=== PATIENT | female | born 1990 | race Caucasian/White ===

== ENCOUNTER 2016-02-06 04:11 | Outpatient (CLI) | payer BC, OTHER | END 2016-02-06 05:32 | disposition home or self-care (01) | LOC: FBPOP 04:11 | PROVIDERS: ATTEND Obstetrics & Gynecology | DX: O62.2 Other uterine inertia (principal); Z3A.38 38 weeks gestation of pregnancy | CPT/HCPCS: 59025; 99213 ==

== ENCOUNTER 2016-02-08 06:22 | Inpatient (IN) | payer BC, OTHER ==
[2016-02-08] MEDS ORDERED: LACTATED RINGERS 1,000 ML IV ONE (06:34)
[2016-02-08] MEDS ORDERED: CITRIC ACID-SODIUM CITRATE 15 ML CUP PO ONE (06:34)
[2016-02-08 06:43] VITALS: BMI 34.7
[2016-02-08] MEDS ORDERED: LACTATED RINGERS 1,000 ML IV SCH (06:45)
[2016-02-08 06:57] LABS: Basophils % (A) 0 %; CH 31.1; CHCM 34.7; Eosinophils # (A) 0.4 k/uL (0-0.7); Eosinophils % (A) 4 %; HCT 32.6 % (34.0-46.0); HDW 3.14; HGB 11.4 gm/dL (11.4-16.0); Luc # (Auto) 0.17; Luc % (Auto) 2; Lymphocytes # (A) 2.1 k/uL (1.0-4.8); Lymphocytes % (A) 19 %; MCH 31.5 pg (25.0-35.0); MCHC 34.9 g/dL (31.0-37.0); MCV 90.3 fL (80.0-100.0); Mean Platelet Volume 7.4; Monocytes # (A) 0.5 k/uL (0-1.0); Monocytes % (A) 5 %; Neutrophils # (A) 7.7 k/uL (1.3-7.7); Neutrophils % (A) 70 %; RBC 3.62 m/uL (3.80-5.40); RDW 13.6 % (11.5-15.5); WBC 10.9 k/uL (3.8-10.6); WBC (Perox) 11.29
[2016-02-08] MEDS ORDERED: ceFAZolin 2 GM in SODIUM CHLORIDE 0.9% 100 ML IVPB STA (07:39)
[2016-02-08] MEDS ORDERED: NALBUPHINE 10 MG/ML AMPUL ONE (07:54)
[2016-02-08] MEDS ORDERED: ONDANSETRON 4 MG/2 ML VIAL ONE (07:54)
[2016-02-08] MEDS ORDERED: OXYTOCIN 10 UNIT/ML 1 ML VIAL IM ONE (07:54)
[2016-02-08] MEDS ORDERED: MORPHINE SULFATE (PF) 0.3 MG/0.3 ML SYR ONE (07:54)
[2016-02-08] MEDS ORDERED: KETOROLAC 30 MG/ML 1 ML VIAL ONE (07:54)
[2016-02-08] MEDS ORDERED: diphenhydrAMINE 50 MG/ML 1 ML VIAL IVP PRN ×3 (08:19→08:36)
[2016-02-08] MEDS ORDERED: MORPHINE SULFATE 4 MG/ML SYRINGE IVP PRN (08:19)
[2016-02-08] MEDS ORDERED: ONDANSETRON 4 MG/2 ML VIAL IVP PRN (08:19)
[2016-02-08] MEDS ORDERED: NALOXONE 0.4 MG/ML 1 ML VIAL IV PRN (08:19)
[2016-02-08] MEDS ORDERED: ZOLPIDEM 5 MG TAB PO PRN (08:36)
[2016-02-08] MEDS ORDERED: diphenhydrAMINE 25 MG CAP PO PRN (08:36)
[2016-02-08] MEDS ORDERED: LANOLIN CREAM 5 GM TUBE TOPICAL PRN (08:36)
[2016-02-08] MEDS ORDERED: ACETAMINOPHEN TAB 325 MG TAB PO PRN (08:36)
[2016-02-08] MEDS ORDERED: Acetaminophen-Codeine 300-30mg TAB PO PRN (08:36)
[2016-02-08] MEDS ORDERED: diphenhydrAMINE 50 MG CAP PO PRN (08:36)
[2016-02-08] MEDS ORDERED: METOCLOPRAMIDE 5 MG/ML 2 ML VIAL IVP PRN (08:36)
[2016-02-08] MEDS ORDERED: SIMETHICONE 80 MG CHEWABLE PO PRN (08:36)
--- NOTE | 2016-02-08 08:40 | P.HPOB ---
History of Present Illness H&P Date: 02/08/16 Chief Complaint: repeat with TL 25 year old presents at 39 weeks for repeat low transverse with tubal ligation. Review of Systems All systems: negative Constitutional: Denies chills, Denies fever Eyes: denies blurred vision, denies pain Ears, nose, mouth and throat: Denies headache, Denies sore throat Cardiovascular: Denies chest pain, Denies shortness of breath Respiratory: Denies cough Gastrointestinal: Denies abdominal pain, Denies diarrhea, Denies nausea, Denies vomiting Genitourinary: Denies dysuria, Denies hematuria Musculoskeletal: Denies myalgias Integumentary: Denies pruritus, Denies rash Neurological: Denies numbness, Denies weakness Psychiatric: Denies anxiety, Denies depression Endocrine: Denies fatigue, Denies weight change Past Medical History Past Medical History: No Reported History Additional Past Medical History / Comment(s): OB history: she has had 2 previous c-sections. Her care was with me since her second trimester. History of Any Multi-Drug Resistant Organisms: MRSA Date of last positivie culture/infection: 2014 MDRO Source:: groin, section incision Past Surgical History: Section, Orthopedic Surgery Additional Past Surgical History / Comment(s): bilateral legs Past Anesthesia/Blood Transfusion Reactions: No Reported Reaction Past Psychological History: No Psychological Hx Reported Smoking Status: Current every day smoker Past Alcohol Use History: None Reported Past Drug Use History: None Reported - Past Family History Mother Family Medical History: No Reported History Medications and Allergies Allergies Allergy/AdvReac Type Severity Reaction Status Date / Time Penicillins Allergy Vomiting Verified 02/08/16 06:32 Exam Osteopathic Statement: *. No significant issues noted on an osteopathic structural exam other than those noted in the History and Physical/Consult. - Vital Signs Vital signs: Vital Signs Temp Pulse Resp BP 02/08/16 06:31 97.2 F L 85 16 136/65 Intake and Output 02/07/16 02/08/16 02/08/16 22:59 06:59 14:59 Other: Weight 78.018 kg Heart: RRR Lungs: CTAB Abdomen: soft, nontender Extremeties: neg mary's Results Result Diagrams: 02/08/16 06:30 Abnormal Lab Results - Last 24 Hours (Table) 02/08/16 Range/Units 06:30 WBC 10.9 H (3.8-10.6) k/uL RBC 3.62 L (3.80-5.40) m/uL Hct 32.6 L (34.0-46.0) % Assessment and Plan (1) Previous section Status: Acute (2) Family planning Status: Acute Plan: 1. repeat low transverse with tubal ligation
--- NOTE | 2016-02-08 08:43 | P.OP ---
Date of Procedure: 02/08/16 Preoperative Diagnosis: 1. at 39 weeks 2. previous 3. family planning Postoperative Diagnosis: 1. at 39 weeks 2. previous 3. family planning Procedure(s) Performed: Repeat low transverse with tubal ligation Implants: Anesthesia: spinal Surgeon: Amalia Cao Physics Department Chair #1: Andres Duron Estimated Blood Loss (ml): 500 IV fluids (ml): 800 Urine output (ml): 200 Pathology: other (Placenta, bilateral fallopian tube segment) Condition: stable Disposition: floor Indications for Procedure: Operative Findings: Viable female, Apgars 8, 9, weight 6 lbs. 7 oz. Description of Procedure: Patient was taken to the operating room where spinal anesthesia was found be adequate. She was prepped and draped in normal sterile fashion in dorsal supine position with a leftward tilt. Pfannenstiel skin incision was made the scalpel and carried through to the underlying layer of fascia with the scalpel. Fascia was incised in midline and carried bilaterally with the Francis scissors. The superior aspect of the fascial incision was grasped with Kiel clamps elevated and the underlying rectus muscles dissected off with the Francis's. Attention was then turned to inferior aspect of same incision which in a similar fashion was grasped tented up and the underlying rectus muscles dissected off with the Francis's. The rectus muscles were the midline and the peritoneum was identified tented up and entered sharply with the scalpel. The incision was extended superiorly and inferiorly with good visualization of the bladder. The bladder blade was inserted and the vesicouterine peritoneum was incised the Metzenbaums then carried bilaterally and bladder flap created digitally. A low transverse incision was then made on the uterus with the scalpel. This was carried bilaterally and digital manner. 's head delivered atraumatically, nose and mouth bulb suctioned, cord clamped and cut, infant handed off to waiting nurses. Apgars 8,9, weight 6 lbs. 7 oz. Placenta delivered manually, intact with three-vessel cord. The uterus is exteriorized and cleared of all clots and debris. The uterine incision was closed with 0 Vicryl in a running locked fashion. Both ovaries and tubes appeared normal. The right fallopian tube was grasped with a hemostat and a window was made in the mesosalpinx with the Bovie. The fallopian tube was doubly ligated and a segment was removed. The pedicles were cauterized with the Bovie. The left fallopian tube was grasped with a hemostat and a window was made in the mesosalpinx with the Bovie. The fallopian tube was doubly ligated and a segment was removed. The pedicles were cauterized with the Bovie. The uterus was placed back into the abdomen. The peritoneum was reapproximated using 2-0 Vicryl in a running fashion. The muscles were reapproximated using 2-0 Vicryl in interrupted fashion. The fascia was reapproximated using 0 Vicryl in a running fashion. The subcutaneous tissues closed with 3-0 Vicryl running fashion. The skin was closed luan. Patient tolerated the procedure well, sponge and instrument counts were correct times 2 and she was taken to the recovery room in stable condition.
[2016-02-08] MEDS ORDERED: OXYTOCIN 30 UNITS/500 ML NS 30 UNIT in SALINE 1 500ML.BAG IV SCH (08:45)
[2016-02-08] MEDS: NICOTINE 21MG/24HR PATCH TRANSDERM SCH (09:30)
[2016-02-08] MEDS: KETOROLAC 30 MG/ML 1 ML VIAL IVP PRN ×2 (16:33→22:27)
[2016-02-08] MEDS: LACTATED RINGERS 1,000 ML IV SCH (17:05)
[2016-02-08] MEDS: SENNOSIDES-DOCUSATE SODIUM 1 EACH TAB PO SCH (20:40)
[2016-02-09] MEDS: LACTATED RINGERS 1,000 ML IV SCH (02:23)
[2016-02-09] MEDS: KETOROLAC 30 MG/ML 1 ML VIAL IVP PRN (04:20)
--- NOTE | 2016-02-09 08:33 | P.PNOBGPC ---
Subjective - Subjective Principal diagnosis: S/P RLTCS with TL POD #1 Interval history: Patient seen and examined. no flatus yet. Denies N/V, F/C, CP, SOB, calf pain. Patient reports: Reports appetite normal, Reports voiding normally, Reports pain well controlled, Reports ambulating normally : doing well Objective - Vital Signs Latest vital signs: Vital Signs Temp Pulse Resp BP Pulse Ox 02/09/16 04:00 98.0 F 71 16 105/68 98 02/09/16 03:00 98 02/09/16 01:00 98 02/09/16 00:00 97.0 F L 61 16 126/87 99 02/08/16 23:00 97 02/08/16 21:00 99 02/08/16 20:00 97.7 F 65 16 113/59 98 02/08/16 19:00 98 02/08/16 17:00 96 02/08/16 16:00 97.7 F 65 16 125/60 98 02/08/16 15:00 98 02/08/16 13:00 98 F 62 16 128/62 99 02/08/16 12:00 97.8 F 69 16 132/72 02/08/16 11:19 62 16 136/70 99 02/08/16 10:34 98.1 F 63 16 123/73 98 02/08/16 10:04 62 16 117/67 97 02/08/16 09:34 64 16 123/79 99 02/08/16 09:19 80 16 114/70 99 02/08/16 09:04 70 16 127/79 98 02/08/16 08:49 95.7 F L 64 16 121/63 98 02/08/16 08:34 96.9 F L 86 16 118/59 99 Intake and Output 02/08/16 02/09/16 02/09/16 22:59 06:59 14:59 Intake Total 600 1100 Output Total 1600 Balance -1000 1100 Intake: Intake, IV Titration 500 Amount Lactated Ringers 1,000 ml 500 @ 125 mls/hr IV .Q8H [facility] Rx#:[id number] Oral 600 600 Output: Urine 1600 Other: # Voids 1 1 - Exam Lungs: bilateral: normal Chest: Normal S1, Normal S2 Extremities: Present: normal Abdomen: Present: normal appearance, soft. Absent: distention, tenderness Incision: Present: normal, dry, intact Uterus: Present: normal, firm Assessment and Plan (1) Previous section Current Visit: Yes Status: Resolved Code(s): Z98.891 - HISTORY OF UTERINE SCAR FROM PREVIOUS SURGERY SNOMED Code(s): 774234414 (2) Family planning Current Visit: Yes Status: Resolved Code(s): Z30.09 - ENCOUNTER FOR OTH GENERAL CNSL AND ADVICE ON CONTRACEPTION SNOMED Code(s): 39183212 (3) Status post repeat low transverse section Narrative/Plan: 1. po care 2. reg diet with flatus Current Visit: No Status: Acute Code(s): Z98.89 - OTHER SPECIFIED POSTPROCEDURAL STATES * DO NOT USE * SNOMED Code(s): 849032399
[2016-02-09 08:40] LABS: Basophils % (A) 0 %; CH 31.3; CHCM 34.5; Eosinophils # (A) 0.4 k/uL (0-0.7); Eosinophils % (A) 3 %; HDW 3.12; HGB 10.4 gm/dL (11.4-16.0); Luc # (Auto) 0.22; Luc % (Auto) 2; Lymphocytes # (A) 2.5 k/uL (1.0-4.8); Lymphocytes % (A) 23 %; MCH 30.8 pg (25.0-35.0); MCHC 33.6 g/dL (31.0-37.0); MCV 91.5 fL (80.0-100.0); Mean Platelet Volume 7.1; Monocytes # (A) 0.4 k/uL (0-1.0); Monocytes % (A) 4 %; Neutrophils # (A) 7.4 k/uL (1.3-7.7); Neutrophils % (A) 68 %; RBC 3.39 m/uL (3.80-5.40); RDW 13.9 % (11.5-15.5); WBC 10.9 k/uL (3.8-10.6); WBC (Perox) 11.52
[2016-02-09] MEDS: NICOTINE 21MG/24HR PATCH TRANSDERM SCH (09:33)
--- NOTE | 2016-02-09 10:17 | P.PN ---
Progress Note - Text Postoperative day 1 status post section under spinal anesthesia, and intrathecal morphine given for postoperative analgesia, patient doing ok. Pain score 5-6/10. There is no anesthesia related complications, further management as per her primary team
[2016-02-09] MEDS: SENNOSIDES-DOCUSATE SODIUM 1 EACH TAB PO SCH ×2 (13:06→22:35)
[2016-02-09] MEDS: Acetaminophen-Codeine 300-30mg TAB PO PRN ×3 (13:07→22:35)
[2016-02-09] MEDS: IBUPROFEN 600 MG TAB PO PRN (15:50)
[2016-02-10] MEDS: IBUPROFEN 600 MG TAB PO PRN ×2 (00:20→06:30)
[2016-02-10 01:00] VITALS: RESP 18
[2016-02-10] MEDS: Acetaminophen-Codeine 300-30mg TAB PO PRN ×2 (03:11→12:29)
[2016-02-10 08:32] VITALS: BP 138/94; PULSE 63; TEMP 97.7
--- NOTE | 2016-02-10 08:36 | P.DS ---
Providers Date of admission: 02/08/16 06:22 Expected date of discharge: 02/10/16 Attending physician: Amalia Cao - Discharge Diagnosis(es) (1) Previous section Current Visit: Yes Status: Resolved (2) Family planning Current Visit: Yes Status: Resolved (3) Status post repeat low transverse section Current Visit: No Status: Acute Hospital Course: Pt presented for RLTCS with TL. She underwent this procedure without complication. HEr post course was uneventful. She is ambulating and voiding without difficulty. Passing flatus and tolerating a regular diet. Pain is controlled with po meds. Denies N/V, F/C, CP, SOB, calf pain. Plan - Discharge Summary New Discharge Prescriptions: Acetaminophen-Codeine 300-30mg [Tylenol #3] 2 tab PO Q6H PRN #30 tablet PRN Reason: Pain Ibuprofen [Motrin] 600 mg PO Q6HR PRN #30 tab PRN Reason: Mild Pain Or Fever >= 100.5 Discharge Medication List Acetaminophen-Codeine 300-30mg [Tylenol #3] 2 tab PO Q6H PRN #30 tablet [Rx] Ibuprofen [Motrin] 600 mg PO Q6HR PRN #30 tab 02/10/16 [Rx] Follow up Appointment(s)/Referral(s): Amalia Cao DO [Doctor of Osteopathic Medicine] - 1 Week Discharge Disposition: HOME SELF-CARE
[2016-02-10] MEDS: SENNOSIDES-DOCUSATE SODIUM 1 EACH TAB PO SCH (12:29)
[2016-02-10] MEDS: NICOTINE 21MG/24HR PATCH TRANSDERM SCH (12:29)
== END 2016-02-10 15:39 | disposition home or self-care (01) | DRG 766 ==
LOC: 4FBP 06:22
PROVIDERS: ADMIT Obstetrics & Gynecology; ATTEND Obstetrics & Gynecology
PROC: 0UB70ZZ Excision of Bilateral Fallopian Tubes, Open Approach (ICD-10-PCS; principal; 2016-02-08 08:05)
PROC: 10D00Z1 Extraction of Products of Conception, Low, Open Approach (ICD-10-PCS; principal; 2016-02-08 08:05)
DX: O34.211 Maternal care for low transverse scar from previous cesarean delivery (principal); F17.200 Nicotine dependence, unspecified, uncomplicated; Z37.0 Single live birth; O99.334 Smoking (tobacco) complicating childbirth; Z3A.39 39 weeks gestation of pregnancy; Z88.0 Allergy status to penicillin
CPT/HCPCS: 85025; 86850; 86900; 86901; 88302; 88307

== ENCOUNTER 2016-02-13 00:38 | Emergency (ER) | payer BC, OTHER ==
[2016-02-13 00:45] VITALS: RESP 20
[2016-02-13] MEDS ORDERED: CEPHALEXIN 500MG STARTER PACK 4 CAP BTL PO STA (01:08)
--- NOTE | 2016-02-13 01:09 | ED ---
Recheck HPI - General Chief Complaint: Recheck/Abnormal Lab/Rx Stated Complaint: Post C Section Complication Time Seen by Provider: 02/13/16 00:54 Source: patient, family Mode of arrival: ambulatory Limitations: no limitations - History of Present Illness Initial Comments: Patient is a 25-year-old female presenting to the with chief complaint of some bleeding and taking that her scar is somewhat open. Patient reports she had a on February 07. Patient reports that she was sent home and was even Steri-Strips. She denies any redness or drainage around the incision site. She states that the incision is slightly opened when she lifted up her child earlier in the week. She denies any worsening opening. She states it is healed nicely despite the widening in the middle of the laceration and denies any drainage. She denies any fevers.Patient denies any recent fever , chills, shortness of breath, chest pain, back pain, abdominal pain, nausea vomiting, numbness or tingling, dysuria or hematuria, constipation or diarrhea, headaches or visual changes, or any other current symptoms - Related Data Previous Rx's Medication Instructions Recorded Acetaminophen-Codeine 300-30mg 2 tab PO Q6H PRN #30 tablet 02/10/16 [Tylenol #3] Ibuprofen [Motrin] 600 mg PO Q6HR PRN #30 tab 02/10/16 Cephalexin [Keflex] 500 mg PO Q8HR #21 cap 02/13/16 Allergies Allergy/AdvReac Type Severity Reaction Status Date / Time Penicillins Allergy Vomiting Verified 02/13/16 00:45 Review of Systems ROS Statement: Those systems with pertinent positive or pertinent negative responses have been documented in the HPI. ROS Other: All systems not noted in ROS Statement are negative. Past Medical History Past Medical History: No Reported History Additional Past Medical History / Comment(s): OB history: she has had 2 previous c-sections. Her care was with me since her second trimester. History of Any Multi-Drug Resistant Organisms: MRSA Date of last positivie culture/infection: 2014 MDRO Source:: groin, section incision Past Surgical History: Section, Orthopedic Surgery Additional Past Surgical History / Comment(s): bilateral legs Past Anesthesia/Blood Transfusion Reactions: No Reported Reaction Past Psychological History: No Psychological Hx Reported Smoking Status: Current every day smoker Past Alcohol Use History: None Reported Past Drug Use History: None Reported - Past Family History Mother Family Medical History: No Reported History General Exam - General Exam Comments Initial Comments: Patient is a well-appearing 25-year-old female. She does not appear to be in any acute distress. Limitations: no limitations General appearance: alert, in no apparent distress Head exam: Present: atraumatic, normocephalic, normal inspection Eye exam: Present: normal appearance, PERRL, EOMI. Absent: scleral icterus, conjunctival injection, periorbital swelling ENT exam: Present: normal exam, mucous membranes moist Neck exam: Present: normal inspection. Absent: tenderness, meningismus, lymphadenopathy Respiratory exam: Present: normal lung sounds bilaterally. Absent: respiratory distress, wheezes, rales, rhonchi, stridor Cardiovascular Exam: Present: regular rate, normal rhythm, normal heart sounds. Absent: systolic murmur, diastolic murmur, rubs, gallop, clicks GI/Abdominal exam: Present: soft, normal bowel sounds, other (Evidence of C- section scar. There are Steri-Strips around the incision. There is mild dehiscence of the middle of the wound approximately 0.5 cm apart. The wound is healing well and has no drainage or erythema around the incision site.). Absent : distended, tenderness, guarding, rebound, rigid Extremities exam: Present: normal inspection, full ROM, normal capillary refill. Absent: tenderness, pedal edema, joint swelling, calf tenderness Back exam: Present: normal inspection Neurological exam: Present: alert, oriented X3, CN II-XII intact Psychiatric exam: Present: normal affect, normal mood Skin exam: Present: warm, dry, intact, normal color. Absent: rash Course Vital Signs 02/13/16 02/13/16 00:41 01:28 Temperature 97.7 F 98.6 F Pulse Rate 66 78 Respiratory 20 20 Rate Blood Pressure 143/70 122/78 O2 Sat by Pulse 97 98 Oximetry Medical Decision Making - Medical Decision Making Asians 25-year-old female with chief complaint of thinking that her incision site opened. She denies any drainage, redness or erythema over the incision site. There is a mild area that dehisced approximately 0.5 cm wide. The wound is healing nicely and is healing from the inside out. No indication for closure at this time. We did do a wound culture however there is not much fluid or anything to be culture this time. Patient will be started on Keflex as a prophylactic antibiotic for this surgical site infection. Patient understands that she needs a follow-up with her surgeon in approximately 2-3 days as previously planned. Patient shouldn't chew plan will comply. Return parameters were discussed. I advised patient to not lift or do any specific movements which could cause more disruption of the incision site Disposition Clinical Impression: Dehiscence of internal surgical incision Disposition: HOME SELF-CARE Condition: Good Instructions: Surgical Site Infections (ED) Additional Instructions: Patient instructed to completely anabiotic prescription. Follow-up with OB/ ENVIRONMENTAL COMPLIANCE ENGINEER. Return to the EC if any alarming signs or symptoms occur. Prescriptions: Cephalexin [Keflex] 500 mg PO Q8HR #21 cap Referrals: None,Stated [Primary Care Provider] - 1-2 days Time of Disposition: 01:08
[2016-02-13 01:29] VITALS: BP 122/78; PULSE 78; TEMP 98.6
== END 2016-02-13 01:34 | disposition home or self-care (01) ==
LOC: EC 00:38
DX: T81.32XA Disruption of internal operation (surgical) wound, not elsewhere classified, initial encounter (principal); F17.200 Nicotine dependence, unspecified, uncomplicated; Z88.0 Allergy status to penicillin
CPT/HCPCS: 87070; 87205; 99283

== ENCOUNTER 2016-06-14 23:11 | Emergency (ER) | payer BC, OTHER ==
[2016-06-14 23:24] VITALS: TEMP 98
[2016-06-15] MEDS ORDERED: HYDROcodone/APAP 5-325MG 1 EACH TAB PO STA (00:01)
--- NOTE | 2016-06-15 00:06 | ED ---
ENT HPI - General Chief complaint: ENT Stated complaint: Nose Lac Time Seen by Provider: 06/14/16 23:53 Source: patient, RN notes reviewed Mode of arrival: ambulatory Limitations: no limitations - History of Present Illness Initial comments: Patient is 26-year-old female presents to the emergency room for evaluation of nasal laceration. Patient states around 11 PM she was playing with her 3-year- old son and he head butted her in her nose. Patient states she has a laceration over her nasal bridge. Patient states that her nose did begin to bleed slightly from her nostrils and from the laceration. Patient denies lost conscious. Patient denies headache or dizziness. Patient denies changes in vision. Patient denies nausea or vomiting. Patient states that she is having nasal pain. Patient states her last tetanus vaccine was about 5 years ago. Patient denies taking blood thinners. Patient denies any other injuries during incident. - Related Data Previous Rx's Medication Instructions Recorded Acetaminophen-Codeine 300-30mg 2 tab PO Q6H PRN #30 tablet 02/10/16 [Tylenol #3] Ibuprofen [Motrin] 600 mg PO Q6HR PRN #30 tab 02/10/16 Cephalexin [Keflex] 500 mg PO Q8HR #21 cap 02/13/16 Clindamycin [Cleocin] 150 mg PO Q6H 10 Days 06/15/16 HYDROcodone/APAP 5-325MG [[place] 1 tab PO Q6HR PRN #12 tab 06/15/16 5-325] Allergies Allergy/AdvReac Type Severity Reaction Status Date / Time Penicillins Allergy Vomiting Verified 06/14/16 23:24 codeine AdvReac Vomiting Verified 06/14/16 23:24 Review of Systems ROS Statement: Those systems with pertinent positive or pertinent negative responses have been documented in the HPI. ROS Other: All systems not noted in ROS Statement are negative. Past Medical History Past Medical History: No Reported History Additional Past Medical History / Comment(s): OB history: she has had 2 previous c-sections. Her care was with me since her second trimester. History of Any Multi-Drug Resistant Organisms: MRSA Date of last positivie culture/infection: 2014 MDRO Source:: groin, section incision Past Surgical History: Section, Orthopedic Surgery Additional Past Surgical History / Comment(s): bilateral legs Past Anesthesia/Blood Transfusion Reactions: No Reported Reaction Past Psychological History: No Psychological Hx Reported Smoking Status: Current every day smoker Past Alcohol Use History: None Reported Past Drug Use History: None Reported - Past Family History Mother Family Medical History: No Reported History General Exam - General Exam Comments Initial Comments: Sitting in exam room, no acute distress. Limitations: no limitations General appearance: alert, in no apparent distress Head exam: Present: atraumatic, normocephalic, normal inspection Eye exam: Present: normal appearance, PERRL, EOMI Pupils: Present: normal accommodation ENT exam: Present: other (1cm laceration over left nasal bridge. No active bleeding. Mild swelling over nasal bridge and tenderness on palpation.) Neck exam: Present: normal inspection Respiratory exam: Absent: respiratory distress Extremities exam: Present: normal inspection Back exam: Present: normal inspection Neurological exam: Present: alert, oriented X3, CN II-XII intact, normal gait Psychiatric exam: Present: normal affect, normal mood Skin exam: Present: warm, dry, intact, normal color. Absent: rash Course Vital Signs 06/14/16 06/15/16 23:21 00:18 Temperature 98 F Pulse Rate 75 70 Respiratory 18 15 Rate Blood Pressure 110/66 121/70 O2 Sat by Pulse 98 100 Oximetry Procedures - Laceration Laceration #1 Consent Obtained: verbal consent Indication: laceration Site: other (nasal bridge) Size (cm): 1 Description: linear Depth: simple, single layer Type of Sutures: other (Dermabond) Patient Tolerated Procedure: well, no complications Medical Decision Making - Medical Decision Making Patient is 26-year-old female presents to the emergency room for evaluation and nasal pain and laceration. Laceration repaired with Dermabond. Facial CT: Fractures of the right left nasal bones with slight displacement. Minimal overlying soft tissue swelling. Patient will be started on a prophylactic antibiotic and advised follow-up with ear, nose and throat specialist. Patient' s H&H since everything that was discussed with her. Return parameters discussed. Case discussed with Dr. Lee. - Radiology Data Radiology results: report reviewed, image reviewed Disposition Clinical Impression: Facial laceration, Nasal fracture Disposition: HOME SELF-CARE Condition: Good Instructions: Nasal Fracture (ED), Facial Laceration (ED), Skin Adhesive Care ( ED) Additional Instructions: Take antibiotics as directed. Take ibuprofen as needed for pain. Take [place] as needed for severe pain. Please follow up with ear, nose and throat specialist in 24-48 hours for reevaluation. If any new symptom arises or symptoms worsen, return to ER as soon as possible. Prescriptions: HYDROcodone/APAP 5-325MG [[place] 5-325] 1 tab PO Q6HR PRN #12 tab PRN Reason: Pain Clindamycin [Cleocin] 150 mg PO Q6H 10 Days Referrals: Luis Manuel Reyna MD [STAFF PHYSICIAN] - 1-2 days Time of Disposition: 01:27
[2016-06-15 00:18] VITALS: BP 121/70; PULSE 70; RESP 15
--- NOTE | 2016-06-15 00:43 | CT ---
EXAM: CT Maxillofacial Without Intravenous Contrast CLINICAL HISTORY: Reason: Pain pt. states that she was "head butted" by a toddler. Laceration to nose. TECHNIQUE: Axial computed tomography images of the face without intravenous contrast. CTDI is 30 mGy and DLP is 600 mGy-cm This CT exam was performed using one or more of the following dose reduction techniques: automated exposure control, adjustment of the mA and/or kV according to patient size, and/or use of iterative reconstruction technique. COMPARISON: No relevant prior studies available. FINDINGS: Bones/joints: Fractures of the right and left nasal bones with slight displacement. Minimal overlying soft tissue swelling. Soft tissues: See above. Orbits: Unremarkable. Sinuses: Mild mucosal thickening of the maxillary sinuses. No air- fluid levels. Dental: Mild periapical lucencies around the posterior maxillary molar teeth. Possible periapical abscess. IMPRESSION: Fractures of the right and left nasal bones with slight displacement. Minimal overlying soft tissue swelling.
[2016-06-15] MEDS ORDERED: LIDOCAINE/EPINEPHR/TETRACAINE 5 ML BOTTLE TOPICAL ONE ×2 (01:01→11:35)
[2016-06-15] MEDS ORDERED: TOPICAL SKIN ADHESIVE 1 EACH AMP TOPICAL ONE (01:02)
== END 2016-06-15 01:58 | disposition home or self-care (01) ==
LOC: EC 23:11
DX: S02.2XXA Fracture of nasal bones, initial encounter for closed fracture (principal); S01.21XA Laceration without foreign body of nose, initial encounter; F17.200 Nicotine dependence, unspecified, uncomplicated; Z86.14 Personal history of Methicillin resistant Staphylococcus aureus infection; Z88.0 Allergy status to penicillin; Z88.5 Allergy status to narcotic agent; W51.XXXA Accidental striking against or bumped into by another person, initial encounter; Y93.89 Activity, other specified
CPT/HCPCS: 12011; 70486; 99283

== ENCOUNTER 2016-10-08 19:18 | Emergency (ER) | payer OTHER ==
[2016-10-08 19:25] VITALS: RESP 16
--- NOTE | 2016-10-08 20:13 | ED ---
General Adult HPI - General Chief complaint: Extremity Problem,Nontraumatic Stated complaint: Ankle Pain Time Seen by Provider: 10/08/16 19:37 Source: patient, RN notes reviewed Mode of arrival: wheelchair Limitations: no limitations - History of Present Illness Initial comments: 26 yo female presents to the ER with cc of right ankle pain. Patient states she was walking up the stairs yesterday and she just felt as if she had this pain to her right ankle. Patient points to the anterior radiate. Patient states it hurts to twist it also hurts if she moves her leg. Patient states there is no knee pain. Patient states there is no actual trauma that she is aware of. Patient states that she was concerned due to the pain so she thought that she should be evaluated. Patient has baseline or deformity noted. Patient states this pain. Patient denies any calf pain with this. Patient states it happened when she is walking up the stairs. Patient denies any recent fever, chills, shortness of breath, chest pain, back pain, abdominal pain, nausea vomiting, numbness or tingling, dysuria or hematuria, constipation or diarrhea, headaches or visual changes, or any other current symptoms. - Related Data Home Medications Medication Instructions Recorded Confirmed Multivitamin [Children's 1 tab PO DAILY 10/08/16 10/08/16 Multivitamins] Previous Rx's Medication Instructions Recorded Ibuprofen [Motrin] 600 mg PO Q6HR PRN #20 tab 10/08/16 Allergies Allergy/AdvReac Type Severity Reaction Status Date / Time codeine AdvReac Vomiting Verified 10/08/16 19:38 Penicillins AdvReac Vomiting Verified 10/08/16 19:38 Review of Systems ROS Statement: Those systems with pertinent positive or pertinent negative responses have been documented in the HPI. ROS Other: All systems not noted in ROS Statement are negative. Past Medical History Past Medical History: No Reported History Additional Past Medical History / Comment(s): OB history: she has had 2 previous c-sections. Her care was with me since her second trimester. History of Any Multi-Drug Resistant Organisms: MRSA Date of last positivie culture/infection: 2014 MDRO Source:: groin, section incision Past Surgical History: Section, Orthopedic Surgery Additional Past Surgical History / Comment(s): bilateral legs Past Anesthesia/Blood Transfusion Reactions: No Reported Reaction Past Psychological History: No Psychological Hx Reported Smoking Status: Current every day smoker Past Alcohol Use History: None Reported Past Drug Use History: None Reported - Past Family History Mother Family Medical History: No Reported History General Exam - General Exam Comments Initial Comments: General: The patient is awake and alert, in no distress, and does not appear acutely ill. Neck: The neck is supple, there is no tenderness. Cardiovascular: There is a regular rate and rhythm. No murmur, rub or gallop is appreciated. Respiratory: Lungs are clear to auscultation, respirations are non-labored, breath sounds are equal. No wheezes, stridor, rales, or rhonchi. Musculoskeletal: Sensation intact with 2+ pulses. Left garza. Range of motion of right knee and right ankle. Patient has point tenderness just anterior lateral malleolus. Full range of motion. No deformity no swelling. No calf tenderness. No proximal tib-fib tenderness. No tenderness to palpation of the forefoot. Neurological: CN II-XII intact, There are no obvious motor or sensory deficits. Coordination appears grossly intact. Speech is normal. Skin: Skin is warm and dry and no rashes or lesions are noted. Psychiatric: Normal mood and affect. Limitations: no limitations Course Vital Signs 10/08/16 19:20 Temperature 97.5 F L Pulse Rate 80 Respiratory 16 Rate Blood Pressure 130/84 O2 Sat by Pulse 99 Oximetry Procedures - Orthopedic Splinting/Casting Injury #1 Side: right Lower Extremity Injury Location: ankle Lower Extremity Immobilizer: Sohail wrap Medical Decision Making - Medical Decision Making 26 yo female presents to the emergency department with a chief complaint of right ankle pain. At this time patient's x-rays are reviewed and negative. Patient also has a right ankle sprain. This time we did discuss close follow up with her doctor. We discussed return parameters all her questions. Patient stated that she understood and she is given plan. She'll be discharged home. - Radiology Data Radiology results: report reviewed, image reviewed Disposition Clinical Impression: Right ankle sprain Disposition: HOME SELF-CARE Condition: Stable Instructions: Ankle Sprain (ED) Additional Instructions: Please use medication as discussed. Please follow up with family doctor if symptoms have not improved over the next two days. Please return to the emergency room if your symptoms increase or worsen or for any other concerns. Prescriptions: Ibuprofen [Motrin] 600 mg PO Q6HR PRN #20 tab PRN Reason: Pain Referrals: Sakina Cardenas MD [STAFF PHYSICIAN] - 1-2 days Time of Disposition: 20:55
[2016-10-08] MEDS ORDERED: IBUPROFEN 600 MG TAB PO STA (20:47)
--- NOTE | 2016-10-08 20:50 | XR ---
EXAMINATION TYPE: XR ankle complete RT DATE OF EXAM: 10/08/2016 COMPARISON: NONE HISTORY: Pain TECHNIQUE: Three-view right ankle FINDINGS: No acute fractures are evident. Soft tissues are normal. Ankle mortise is intact. IMPRESSION: 1. Normal three-view right ankle. 2. Follow-up exam can be performed 7-10 days from acute trauma for continued pain.
--- NOTE | 2016-10-08 20:51 | XR ---
EXAMINATION TYPE: XR foot complete RT DATE OF EXAM: 10/08/2016 CLINICAL HISTORY: Pain x1 day TECHNIQUE: Frontal, lateral, and oblique images of the right foot are obtained. COMPARISON: None FINDINGS: There is no acute fracture/dislocation evident in the right foot. The joint spaces in the right foot appear within normal limits. The overlying soft tissue appears unremarkable. IMPRESSION: There is no acute fracture or dislocation in the right foot.
[2016-10-08 21:08] VITALS: BP 122/56; PULSE 68; TEMP 98.4
== END 2016-10-08 21:07 | disposition home or self-care (01) ==
LOC: EC 19:18
DX: S93.401A Sprain of unspecified ligament of right ankle, initial encounter (principal); F17.200 Nicotine dependence, unspecified, uncomplicated; Z98.890 Other specified postprocedural states; Z79.899 Other long term (current) drug therapy; Z86.14 Personal history of Methicillin resistant Staphylococcus aureus infection; Z88.5 Allergy status to narcotic agent; Z88.0 Allergy status to penicillin; Y93.01 Activity, walking, marching and hiking
CPT/HCPCS: 99283